=== PATIENT | female | born 1990 | race Caucasian/White ===

== ENCOUNTER 2017-09-14 23:00 | Emergency (ER) | payer MEDICAID ==
[2017-09-14 23:25] VITALS: BP 139/75; PULSE 79; RESP 16; TEMP 97.9; O2SAT 100
[2017-09-14] MEDS ORDERED: Alum-Mag Hydrox-Simethicone Susp (30 mL) PO STA (23:27)
--- NOTE | 2017-09-14 23:30 | ED PDOC ---
HPI: Abdomen Time Seen by Provider: 09/14/17 23:28 Chief Complaint (Nursing): Abdominal Pain Chief Complaint (Provider): abdominal pain History Per: Patient (27 y/o female here with 2 days of epigastric pain intermittent. Denies any otc medications. Notes she is constipated x 1 day. Denies any dysuria. Believes she has gas. Denies any vomiting/diarrhea/fevers/ chills. No h/o abdominal surgeries.) Past Medical History Reviewed: Historical Data, Nursing Documentation, Vital Signs Vital Signs: Last Vital Signs Temp 97.9 F 09/14/17 23:18 Pulse 79 09/14/17 23:18 Resp 16 09/14/17 23:18 BP 139/75 09/14/17 23:18 Pulse Ox 100 09/14/17 23:29 - Family History Family History: States: Unknown Family Hx - Home Medications Home Medications: Ambulatory Orders Medication Instructions Recorded Multivit/Folic Acid/I 1 tab PO DAILY #30 tab 11/24/14 [ Plus] Ondansetron ODT [Zofran ODT] 4 mg PO QID #20 odt 01/18/15 Famotidine [Pepcid] 20 mg PO BID #10 tab 12/29/15 Ondansetron [Zofran] 4 mg PO Q8H PRN #10 tab 12/29/15 - Allergies Allergies/Adverse Reactions: Allergies Allergy/AdvReac Type Severity Reaction Status Date / Time No Known Allergies Allergy Verified 12/29/15 10:28 Review of Systems ROS Statement: Except As Marked, All Systems Reviewed And Found Negative Physical Exam - Reviewed Nursing Documentation Reviewed: Yes Vital Signs Reviewed: Yes - Physical Exam Appears: Positive for: Well, Non-toxic, No Acute Distress Head Exam: Positive for: ATRAUMATIC, NORMAL INSPECTION, NORMOCEPHALIC Skin: Positive for: Normal Color, Warm, DRY Eye Exam: Positive for: EOMI, Normal appearance, PERRL ENT: Positive for: Normal ENT Inspection Neck: Positive for: Normal, Painless ROM Cardiovascular/Chest: Positive for: Regular Rate, Rhythm Respiratory: Positive for: CNT, Normal Breath Sounds Gastrointestinal/Abdominal: Positive for: Normal Exam, Bowel Sounds, Soft, Tenderness (epigastric tenderness) Back: Positive for: Normal Inspection Extremity: Positive for: Normal ROM Neurologic/Psych: Positive for: Alert, Oriented - Laboratory Results Urine POC: Positive - ECG O2 Sat by Pulse Oximetry: 100 Disposition - Clinical Impression Clinical Impression: Abdominal pain during - Patient ED Disposition Is Patient to be Admitted: Transfer of Care - Disposition Disposition: Transfer of Care Disposition Time: 23:59 Condition: FAIR Forms: [facility] (Welsh) Patient Signed Over To: Mela Gibbs Handoff Comments: pendng labs/us
[2017-09-14] MEDS ORDERED: Alum-Mag Hydrox-Simethicone Susp (30 mL) PO ONE (23:44)
[2017-09-15] MEDS ORDERED: Alum-Mag Hydrox-Simethicone Susp (30 mL) ONE (00:06)
--- NOTE | 2017-09-15 00:15 | ED PDOC ---
- Laboratory Results Result Diagrams: 09/15/17 00:20 09/15/17 00:20 Urine POC: Positive - ECG O2 Sat by Pulse Oximetry: 100 Medical Decision Making Medical Decision Making: Case endorsed to lyric writer from RODRÍGUEZ Nye at midnight pending diagnostic review and re-eval Upon lyric writer's eval, pt reports mild nausea. No abdominal pain Pt declined analgesics. Administered zofran with good relief obtained Beta [id number] US FINDINGS: Fetus: The average ultrasound gestational age was measured at 16 weeks and 6 days. The gestational age calculated from BPD is estimated to be 17 weeks 3 days and head circumference is 16 weeks 5 days. The gestational age calculated, abdominal circumference is estimated to be 16 weeks 3 days. Position: There is a flores fetus in the vertex presentation. Heart rate: The heart rate was measured at 159 beats per minute. Biometrics: The gestational age calculated from femur length is estimated to be 16 weeks 5 days. Placenta: The placenta is anterior in location. No placenta previa. Amniotic fluid: There's an adequate amount of amniotic fluid. Cervix: The cervix is closed and measures 5.9 cm. IMPRESSION: No acute findings. IUP as described. Pt advised importance of follow up. Given RX for pre- vitamins. Disposition - Clinical Impression Clinical Impression: Abdominal pain during - POA Present On Arrival: None - Disposition [facility] Disposition: Routine/Home Disposition Time: 03:15 Condition: FAIR Prescriptions: Ondansetron ODT [Zofran ODT] 4 mg PO Q6 PRN #10 odt PRN Reason: Nausea/Vomiting Vit37/Iron/Folic Acid [Prenata] 1 ctb PO DAILY #30 ctb Instructions: Abdominal Pain in (ED) Forms: [facility] [employer] (Spanish)
[2017-09-15 00:43] LABS: BASO # 0.1 K/uL (0.0-0.2); BASO % 0.6 % (0.0-2.0); EOS # 0.1 K/uL (0.0-0.7); EOS % 1.1 % (0.0-4.0); HEMATOCRIT 35.5 % (34.0-47.0); LYMPH # 2.1 K/uL (1.0-4.3); LYMPH % 22.1 % (20.0-40.0); MEAN CELL VOLUME 99.5 fl (81.0-99.0); MEAN CORPUSCULAR HEMOGLOBIN 33.5 pg (27.0-31.0); MEAN CORPUSCULAR HGB CONC 33.6 g/dL (33.0-37.0); MEAN PLATELET VOLUME 9.8 fl (7.2-11.7); MONO # 0.7 K/uL (0.0-0.8); MONO % 7.3 % (0.0-10.0); NEUT # 6.6 K/uL (1.8-7.0); NEUT % 68.9 % (50.0-75.0); WHITE BLOOD COUNT 9.6 K/uL (4.8-10.8)
[2017-09-15 00:47] LABS: RBC URINE 1 /hpf (0-3); URINE BACTERIA RARE (<OCC); URINE BILIRUBIN NEGATIVE (NEGATIVE); URINE BLOOD NEGATIVE (NEGATIVE); URINE COLOR YELLOW (YELLOW); URINE GLUCOSE (UA) NEG (Normal); URINE KETONE NEGATIVE (NEGATIVE); URINE LEUKOCYTE ESTERASE NEG Leu/uL (Negative); URINE PROTEIN NEGATIVE (NEGATIVE); WBC URINE 2 /hpf (0-5)
[2017-09-15 00:48] LABS: ALB/GLOB RATIO 1.3 (1.0-2.1); ALKALINE PHOSPHATASE 62 U/L (38-126); ALT/SGPT 34 U/L (9-52); AST/SGOT 20 U/L (14-36); BILIRUBIN,TOTAL 0.2 mg/dl (0.2-1.3); BLOOD UREA NITROGEN 8 mg/dl (7-17); CALCIUM 8.8 mg/dL (8.4-10.2); CARBON DIOXIDE 22 mmol/L (22-30); CHLORIDE 107 mmol/L (98-107); GFR AFRICAN-AMERICAN > 60; GLUCOSE,RANDOM 94 mg/dL (65-105); POTASSIUM 3.7 MMOL/L (3.6-5.0); SODIUM 135 mmol/l (132-148); TOTAL PROTEIN 6.6 G/DL (6.3-8.2)
--- NOTE | 2017-09-15 03:04 | US ---
EXAM: US Uterus, Limited CLINICAL HISTORY: 27 years old, female; Pain; Other: Abd pain; Gestational age or lmp: 08/22/17 ? ? ; ; Additional info: Abdominal pain in TECHNIQUE: Real-time ultrasound of the maternal uterus (limited) with image documentation. 2 Real time cine loop images are submitted. COMPARISON: No relevant prior studies available. FINDINGS: Fetus: The average ultrasound gestational age was measured at 16 weeks and 6 days. The gestational age calculated from BPD is estimated to be 17 weeks 3 days and head circumference is 16 weeks 5 days. The gestational age calculated, abdominal circumference is estimated to be 16 weeks 3 days. Position: There is a flores fetus in the vertex presentation. Heart rate: The heart rate was measured at 159 beats per minute. Biometrics: The gestational age calculated from femur length is estimated to be 16 weeks 5 days. Placenta: The placenta is anterior in location. No placenta previa. Amniotic fluid: There's an adequate amount of amniotic fluid. Cervix: The cervix is closed and measures 5.9 cm. IMPRESSION: No acute findings. IUP as described.
== END 2017-09-15 03:05 | disposition home or self-care (01) ==
LOC: H.ER 23:00
DX: O26.899 Other specified pregnancy related conditions, unspecified trimester (principal)
CPT/HCPCS: 76815; 80053; 81003; 81025; 84702; 85025; 87086; 87491; 87591; 96374; 99283; J2405

== ENCOUNTER 2017-10-06 14:49 | Emergency (ER) | payer MEDICAID ==
[2017-10-06 15:24] VITALS: BP 111/69; PULSE 75; RESP 16; TEMP 98; O2SAT 99
--- NOTE | 2017-10-06 16:36 | ED PDOC ---
HPI: Dental Pain/Injury Time Seen by Provider: 10/06/17 16:20 Chief Complaint (Nursing): Dental Pain Chief Complaint (Provider): Dental Pain History Per: Patient History/Exam Limitations: no limitations Onset/Duration Of Symptoms: Days Current Symptoms Are (Timing): Still Present Additional Complaint(s): Brionna Stratton is a 27 year old female that presents to the ED with a chief complaint of right lower jaw pain that she has been experiencing for the past two days. Patient reports that she has not taken any medication for her pain. Of Note: Patient is . Past Medical History Reviewed: Historical Data, Nursing Documentation, Vital Signs Vital Signs: Last Vital Signs Temp 98 F 10/06/17 15:22 Pulse 75 10/06/17 15:22 Resp 16 10/06/17 15:22 BP 111/69 10/06/17 15:22 Pulse Ox 99 10/06/17 15:22 - Family History Family History: States: Unknown Family Hx - Home Medications Home Medications: Ambulatory Orders Medication Instructions Recorded Multivit/Folic Acid/I 1 tab PO DAILY #30 tab 11/24/14 [ Plus] Ondansetron ODT [Zofran ODT] 4 mg PO QID #20 odt 01/18/15 Famotidine [Pepcid] 20 mg PO BID #10 tab 12/29/15 Ondansetron [Zofran] 4 mg PO Q8H PRN #10 tab 12/29/15 Ondansetron ODT [Zofran ODT] 4 mg PO Q6 PRN #10 odt 09/15/17 Vit37/Iron/Folic Acid 1 ctb PO DAILY #30 ctb 09/15/17 [Prenata] Acetaminophen [Acetaminophen Extra 2 tab PO Q6 PRN #24 tablet 10/06/17 Strength] Penicillin VK [Penicillin VK Tab] 500 mg PO QID #28 tab 10/06/17 - Allergies Allergies/Adverse Reactions: Allergies Allergy/AdvReac Type Severity Reaction Status Date / Time No Known Allergies Allergy Verified 10/06/17 15:21 Review of Systems ROS Statement: Except As Marked, All Systems Reviewed And Found Negative ENT: Positive for: Mouth Pain (right lower jaw pain) Physical Exam - Reviewed Nursing Documentation Reviewed: Yes Vital Signs Reviewed: Yes - Physical Exam Appears: Positive for: Non-toxic, No Acute Distress Head Exam: Positive for: ATRAUMATIC, NORMOCEPHALIC Skin: Positive for: Normal Color, Warm Eye Exam: Positive for: Normal appearance, EOMI, PERRL ENT: Positive for: Other (right lower jaw, molar #32 impaction noted. Mild irritation noted, no obvious abscess. ). Negative for: Normal ENT Inspection Neurologic/Psych: Positive for: Alert, Oriented. Negative for: Motor/Sensory Deficits - ECG O2 Sat by Pulse Oximetry: 99 (RA) Pulse Ox Interpretation: Normal Medical Decision Making Medical Decision Making: Impression: Toothache Plan: * Patient given Rx for Penicillin and Tylenol and instructed to stay away from Motrin, as that can harm fetus. Advised patient to follow up with dentist for further evaluation. Stable for discharge home. Scribe Attestation: Documented by Keke Sotelo, acting as a scribe for Mp Nye PA-C. Provider Scribe Attestation: All medical record entries made by the Scribe were at my direction and personally dictated by me. I have reviewed the chart and agree that the record accurately reflects my personal performance of the history, physical exam, medical decision making, and the department course for this patient. I have also personally directed, reviewed, and agree with the discharge instructions and disposition. Disposition - Clinical Impression Clinical Impression: Toothache - Patient ED Disposition Is Patient to be Admitted: No - Disposition Referrals: Fran Dominguez DDS [Staff Provider] - Disposition: Routine/Home Disposition Time: 16:33 Condition: FAIR Prescriptions: Acetaminophen [Acetaminophen Extra Strength] 2 tab PO Q6 PRN #24 tablet PRN Reason: Pain, Moderate (4-7) Penicillin VK [Penicillin VK Tab] 500 mg PO QID #28 tab Instructions: Toothache (ED) Forms: [employer] (Panamanian), [facility] ED School/Work Excuse
== END 2017-10-06 17:02 | disposition home or self-care (01) ==
LOC: H.ER 14:49
DX: K08.89 Other specified disorders of teeth and supporting structures (principal)

== ENCOUNTER 2017-11-19 22:13 | Emergency (ER) | payer MEDICAID ==
[2017-11-19 23:10] VITALS: BMI 30.8
[2017-11-20 04:39] VITALS: BP 119/81; PULSE 83; RESP 17; TEMP 98.4
== END 2017-11-19 23:40 | disposition home or self-care (01) ==
LOC: H.EROB2 22:13
DX: O26.92 Pregnancy related conditions, unspecified, second trimester (principal); R10.2 Pelvic and perineal pain